=== PATIENT | female | born 1975 | race Caucasian/White ===

== ENCOUNTER 2016-12-07 17:15 | Emergency (ER) | payer OTHER ==
[~2016-12-07] VITALS: Ht 170.2 cm; Wt 86.3 kg
[2016-12-07 17:21] VITALS: BP 116/66
[2016-12-07] MEDS ORDERED: FLEXERIL10 MG PO (17:24)
== END 2016-12-07 17:35 | disposition home or self-care (01) ==
LOC: EME 17:15
DX: M25.512 Pain in left shoulder (principal); V49.10XA Passenger injured in collision with unspecified motor vehicles in nontraffic accident, initial encounter; Z88.0 Allergy status to penicillin
CPT/HCPCS: 99281; 99283

== ENCOUNTER 2017-09-15 23:19 | Emergency (ER) | payer OTHER ==
[~2017-09-15] VITALS: Ht 170.2 cm; Wt 90.1 kg
[~2017-09-15 23:19] MED LIST: FLEXERIL10 MG PO
[2017-09-16 01:53] LABS: BASOPHIL (%) 0.5 % (0-1); EOSINOPHIL COUNT 0.1 K/uL (0-0.3); HEMATOCRIT 33.7 % (36.0-46.0); HEMOGLOBIN 11.4 G/DL (11.9-15.5); IMMATURE GRANULOCYTE (%) 0.4 % (0.0-0.7); LYMPHOCYTE (%) 34.6 % (15-42); LYMPHOCYTE COUNT 2.8 K/uL (1.0-2.8); MCH 31.5 PG (29.0-34.0); MCHC 33.8 G/DL (30.0-36.0); MCV 93.1 FL (83-99); MONOCYTE (%) 7.4 % (3-12); MONOCYTE COUNT 0.6 K/uL (0-0.8); NEUTROPHIL (%) 56.1 % (45-76); NEUTROPHIL COUNT 4.5 K/uL (1.8-6.4); PLATELET COUNT 280 K/uL (156-360); RBC DIS.WIDTH-SD 44.6 % (39-53); RED BLOOD COUNT 3.62 M/uL (3.80-5.20); WHITE BLOOD COUNT 8.1 K/uL (4.1-10.2)
[2017-09-16 02:01] LABS: ALBUMIN 4.3 g/dL (3.2-4.8); CHLORIDE 101 mEq/L (99-109); POTASSIUM 3.8 mEq/L (3.7-5.4); SODIUM 138 mEq/L (136-147)
[2017-09-16 02:03] LABS: GLUCOSE 93 mg/dL (70-99)
[2017-09-16 02:04] LABS: TOTAL PROTEIN 7.7 g/dL (6.4-8.3)
[2017-09-16 02:05] LABS: TOTAL BILIRUBIN 0.6 mg/dL (0.0-1.0)
[2017-09-16 02:07] LABS: ALKALINE PHOSPHATASE 63 IU/L (3-129); CREATININE 0.8 mg/dL (0.6-1.3); GFR ESTIMATE (CALCULATED) > 59 mL/min/
[2017-09-16 02:08] LABS: UREA NITROGEN (BUN) 14 mg/dL (9-23)
[2017-09-16 02:09] LABS: AST (GOT) 15 IU/L (2-34); DIRECT BILIRUBIN 0.2 mg/dL (0.0-0.3)
[2017-09-16 02:10] LABS: ALT (GPT) 19 IU/L (3-49)
[2017-09-16 02:14] LABS: APPEARANCE CLEAR ((CLEAR)); BILIRUBIN NEGATIVE; BLOOD NEGATIVE; COLOR YELLOW ((YELLOW)); GLUCOSE (STRIP) NEGATIVE; KETONES NEGATIVE; LEUKOCYTES TRACE; NITRITE NEGATIVE; PROTEIN (STRIP) 30; UROBILINOGEN 0.2 MG/DL (0.2-1.0)
[2017-09-16 02:19] LABS: BACTERIA RARE /HPF; EPITHELIAL CELLS 1+ /HPF; MUCUS TRACE /LPF; RED BLOOD CELLS 0-5 /HPF (0-5); UCUL ADDED? NO; WHITE BLOOD CELLS 0-5 /HPF (0-5)
[2017-09-16] MEDS ORDERED: PROVENTIL HFA6.7 GM IH (03:30)
[2017-09-16] MEDS ORDERED: CIPRO500 MG PO (03:32)
[2017-09-16 03:50] VITALS: BP 114/75
== END 2017-09-16 03:50 | disposition home or self-care (01) ==
LOC: EME 23:19
PROVIDERS: Emergency Medicine
DX: J20.9 Acute bronchitis, unspecified (principal); N39.0 Urinary tract infection, site not specified; K52.9 Noninfective gastroenteritis and colitis, unspecified; Z88.0 Allergy status to penicillin
CPT/HCPCS: 71046; 80048; 80076; 81003; 85025; 94640; 99281; 99284; J1100

== ENCOUNTER 2017-10-06 02:55 | Emergency (ER) | payer OTHER ==
[~2017-10-06] VITALS: Ht 170.2 cm; Wt 89.5 kg
[~2017-10-06 02:55] MED LIST changes: +CIPRO500 MG PO; +PROVENTIL HFA6.7 GM IH
[2017-10-06 03:37] LABS: BASOPHIL (%) 0.4 % (0-1); EOSINOPHIL (%) 0.7 % (0-5); EOSINOPHIL COUNT 0.1 K/uL (0-0.3); HEMATOCRIT 35.1 % (36.0-46.0); HEMOGLOBIN 11.8 G/DL (11.9-15.5); IMMATURE GRANULOCYTE (%) 0.3 % (0.0-0.7); LYMPHOCYTE (%) 42.1 % (15-42); LYMPHOCYTE COUNT 3.1 K/uL (1.0-2.8); MCH 30.9 PG (29.0-34.0); MCHC 33.6 G/DL (30.0-36.0); MCV 91.9 FL (83-99); MONOCYTE COUNT 0.5 K/uL (0-0.8); NEUTROPHIL (%) 49.5 % (45-76); NEUTROPHIL COUNT 3.7 K/uL (1.8-6.4); PLATELET COUNT 289 K/uL (156-360); RBC DIS.WIDTH-SD 43.8 % (39-53); RED BLOOD COUNT 3.82 M/uL (3.80-5.20); WHITE BLOOD COUNT 7.4 K/uL (4.1-10.2)
[2017-10-06 03:48] LABS: ALBUMIN 4.6 g/dL (3.2-4.8); CHLORIDE 103 mEq/L (99-109); POTASSIUM 3.2 mEq/L (3.7-5.4); SODIUM 139 mEq/L (136-147)
[2017-10-06 03:51] LABS: GLUCOSE 94 mg/dL (70-99); TOTAL PROTEIN 8.1 g/dL (6.4-8.3)
[2017-10-06 03:53] LABS: TOTAL BILIRUBIN 0.4 mg/dL (0.0-1.0)
[2017-10-06 03:54] LABS: ALKALINE PHOSPHATASE 58 IU/L (3-129); CREATININE 0.7 mg/dL (0.6-1.3); GFR ESTIMATE (CALCULATED) > 59 mL/min/; SERUM ETHYL ALCOHOL 163 mg/dL
[2017-10-06 03:56] LABS: AST (GOT) 22 IU/L (2-34); UREA NITROGEN (BUN) 13 mg/dL (9-23)
[2017-10-06 03:57] LABS: ALT (GPT) 19 IU/L (3-49)
[2017-10-06 03:58] LABS: LIPASE 11 U/L (1.0-51.0)
[2017-10-06 04:04] LABS: QUANTITATIVE HCG < 4.0 MIU/ML
[2017-10-06 06:39] VITALS: BP 120/91
== END 2017-10-06 06:39 | disposition home or self-care (01) ==
LOC: EME → EDBD 02:55 → EME 02:55
PROVIDERS: Emergency Medicine
DX: R10.9 Unspecified abdominal pain (principal); E78.5 Hyperlipidemia, unspecified; F41.9 Anxiety disorder, unspecified; F32.9 Major depressive disorder, single episode, unspecified; Z88.0 Allergy status to penicillin
CPT/HCPCS: 74177; 80053; 81003; 83690; 84702; 85025; 99281; 99285; G0480; J7030